=== PATIENT | female | born 1970 | race Native Hawaiian/Other Pacific Islander ===

== ENCOUNTER 2017-11-25 13:23 | Emergency (ER) | payer OTHER ==
[2017-11-25 13:24] VITALS: BMI 21.7
[2017-11-25 13:36] VITALS: TEMP 97.9; O2SAT 100
--- NOTE | 2017-11-25 14:10 | ED PDOC ---
HPI: Psych/Substance Abuse Time Seen by Provider: 11/25/17 14:08 Chief Complaint (Nursing): Psychiatric Evaluation Chief Complaint (Provider): PSYCH EVAL History Per: Patient (47 Y/O FEMALE HERE FOR EVALUATION. NOTED TO BE IN PARK WITH KNIFE APPEARING TO CUT HERSELF. PATIENT STATES SHE WAS UPSET THAT HER BOYFRIEND VISITED HER IN HER STORE AND WANTED TO CUT SELF TO DEMONSRATE TO HIM THAT SHE DIDN'T WANT HIM AROUND. DENIES ANY SUICIDAL OR HOMICIDAL INTENT. NO PREVIOUS PSYCH ILLNESS. LIVES WITH 2 CHILDREN.) Past Medical History Reviewed: Historical Data, Nursing Documentation, Vital Signs Vital Signs: Last Vital Signs Temp 97.9 F 11/25/17 13:32 Pulse 88 11/25/17 13:32 Resp 16 11/25/17 13:32 BP 169/92 H 11/25/17 13:32 Pulse Ox 100 11/25/17 13:32 - Family History Family History: States: No Known Family Hx - Home Medications Home Medications: Ambulatory Orders Medication Instructions Recorded Bacitracin Ointment [Bacitracin] 1 appl TOP Q8H #1 tube 04/19/16 Ibuprofen [Motrin] 1 tab PO Q6 #30 tab 04/19/16 - Allergies Allergies/Adverse Reactions: Allergies Allergy/AdvReac Type Severity Reaction Status Date / Time No Known Allergies Allergy Verified 04/19/16 09:08 Review of Systems ROS Statement: Except As Marked, All Systems Reviewed And Found Negative Physical Exam - Reviewed Nursing Documentation Reviewed: Yes Vital Signs Reviewed: Yes - Physical Exam Appears: Positive for: Well, Non-toxic, No Acute Distress Head Exam: Positive for: ATRAUMATIC, NORMAL INSPECTION, NORMOCEPHALIC Skin: Positive for: Normal Color, Warm, DRY Eye Exam: Positive for: EOMI, Normal appearance, PERRL ENT: Positive for: Normal ENT Inspection Neck: Positive for: Normal, Painless ROM Cardiovascular/Chest: Positive for: Regular Rate, Rhythm Respiratory: Positive for: CNT, Normal Breath Sounds Gastrointestinal/Abdominal: Positive for: Normal Exam, Soft Back: Positive for: Normal Inspection Extremity: Positive for: Normal ROM Neurologic/Psych: Positive for: Alert, Oriented - ECG O2 Sat by Pulse Oximetry: 100 - Progress ED Course And Treament: SEEN BY CRISIS CLEARED FOR D/C HOME DIAGNOSIS ADJUSTMENT DISORDER DR. GUAN Disposition - Clinical Impression Clinical Impression: Adjustment disorder - Patient ED Disposition Is Patient to be Admitted: No - Disposition Disposition: Routine/Home Disposition Time: 14:50 Condition: FAIR Instructions: Adjustment Disorder Forms: [facility] (Slovak)
[2017-11-25 19:25] VITALS: BP 135/82; PULSE 81; RESP 14
== END 2017-11-25 15:42 | disposition home or self-care (01) ==
LOC: H.ER 13:23
DX: F43.20 Adjustment disorder, unspecified (principal)